=== PATIENT | female | born 1995 | race Caucasian/White ===

== ENCOUNTER 2024-11-12 18:17 | Emergency (ER) | payer OTHER | END 2024-11-12 20:42 | LOC: CSHERS 18:17 | DX: O20.9 Hemorrhage in early pregnancy, unspecified (principal); O99.331 Smoking (tobacco) complicating pregnancy, first trimester; F17.290 Nicotine dependence, other tobacco product, uncomplicated; Z3A.01 Less than 8 weeks gestation of pregnancy; Z53.21 Procedure and treatment not carried out due to patient leaving prior to being seen by health care provider | CPT/HCPCS: 76857 ==